=== PATIENT | male | born 1995 | race Caucasian/White ===

== ENCOUNTER 2019-07-28 13:17 | Inpatient (IN) | payer MEDICAID ==
[~2019-07-28] VITALS: Ht 167.6 cm; Wt 67.6 kg
--- NOTE | 2019-07-28 13:17 | NUR ---
Patient transferred to bed 6 via wheelchair by triage nurse. RN evaluating patient at bedside.
--- NOTE | 2019-07-28 13:30 | NUR ---
Dr. Maher is evaluating the patient at bedside.
[2019-07-28] MEDS ORDERED: ADENOSINE 6 MG/2 ML VIAL IVP ONE (13:31)
[2019-07-28 13:33] VITALS: BP 129/81
--- NOTE | 2019-07-28 13:34 | NUR ---
EKG completed by EMT at bedside.
[2019-07-28] MEDS ORDERED: NACL 0.9% 1,000 ML IV ONE ×2 (13:40→14:10)
[2019-07-28 14:07] LABS: BASOPHILS % (AUTO) 0.4 % (0.0-2.0); EOSINOPHILS # (AUTO) 0.3 K/uL (0-0.4); HEMATOCRIT 41.4 % (36-52); HEMOGLOBIN 13.9 g/dL (12.0-18.0); LYMPHOCYTES # (AUTO) 3.9 K/uL (2.0-11.5); MEAN CORPUSCULAR HEMOGLOBIN 29 pg (27-31); MEAN CORPUSCULAR HGB CONC 34 g/dL (33-37); MEAN CORPUSCULAR VOLUME 86.4 fL (80-94); MONOCYTES # (AUTO) 0.5 K/uL (0.8-1.0); MONOCYTES % (AUTO) 5.3 % (1.7-9.3); NEUTROPHILS # (AUTO) 4.2 K/uL (1.8-7.7); NEUTROPHILS % (AUTO) 47.3 % (42.2-75.2); PLATELET COUNT (AUTO) 226 K/uL (140-450); RED BLOOD CELL COUNT(AUTO) 4.79 MIL/uL (4.20-6.10); RED CELL DISTRIBUTION WIDTH 13.1 % (11.6-13.7); WHITE BLOOD COUNT (AUTO) 8.8 K/uL (4.8-10.8)
--- NOTE | 2019-07-28 14:17 | NUR ---
Dr. Maher is re-evaluating the patient at bedside.
--- NOTE | 2019-07-28 14:27 | NUR ---
asked pt to urinate again, provided urinal
[2019-07-28 14:30] LABS: ALBUMIN 3.7 g/dL (3.4-5.0); ANION GAP 16.1 (8-16); CARBON DIOXIDE 23.7 mmol/L (21-32); CREATININE 1.2 mg/dL (0.6-1.3); TOTAL BILIRUBIN 0.5 mg/dL (0.0-1.0)
[2019-07-28 14:32] LABS: POTASSIUM 2.8 mmol/L (3.5-5.1)
[2019-07-28] MEDS ORDERED: POTASSIUM CHLORIDE 10 MEQ TABER PO ONE (14:40)
[2019-07-28] MEDS ORDERED: KCL 20 MEQ/WATER INJ PREMIX 100 ML IV ONE (14:40)
[2019-07-28] MEDS ORDERED: MAG SULF 2000 MG/WATER PREMIX 50 ML IV ONE (14:40)
[2019-07-28] MEDS ORDERED: DEXT 5% /NACL 0.9% 1,000 ML IV SCH (14:47)
[2019-07-28] MEDS ORDERED: HYDROcodone/APAP 7.5/325 MG 1 TAB PO PRN (14:50)
[2019-07-28] MEDS ORDERED: ACETAMINOPHEN 325 MG TAB PO PRN (14:50)
[2019-07-28] MEDS ORDERED: DOCUSATE SODIUM 100 MG GELCAP PO PRN (14:50)
[2019-07-28] MEDS ORDERED: ONDANSETRON 4 MG/2 ML VIAL IM/IVP PRN (14:50)
[2019-07-28] MEDS ORDERED: ONDANSETRON 4 MG/2 ML VIAL IVP ONE (14:55)
--- NOTE | 2019-07-28 15:30 | NUR ---
PT UNABLE TO URINATE, DR WONG AWARE
[2019-07-28 15:43] LABS: CHOL/HDL RATIO 1.8 (1-4.5); FREE T4 (FREE THYROXINE) 1.18 ng/dL (0.76-1.46); MAGNESIUM 1.7 mg/dL (1.8-2.4); PHOSPHORUS 1.9 mg/dL (2.5-4.9)
[2019-07-28] MEDS ORDERED: NITROGLYCERIN 0.4 MG TAB SL PRN (15:45)
--- NOTE | 2019-07-28 15:59 | NUR ---
PT RESTING IN BED, NO NEW NEEDS AT THIS TIME.
[2019-07-28 16:20] VITALS: BP 112/59
--- NOTE | 2019-07-28 16:20 | NUR ---
PATIENT ARRIVED FROM ED VIA GURNEY. REPORT GIVEN BY [facility]. PLANS OF CARE DISCUSSED. PATIENT ALERT AND ORIENTED X4. PORTUGUESE SPEAKING. TRUSS DESIGNER PROVIDED. IV INTACT AND PATENT TO LEFT FOREARM. PER ER REPORT K RIDER STILL NEED TO BE STARTED AFTER THE MAGNESIUM IV FINISHED. INITIAL ASSESSMENT TO BE DONE. VS STABLE. PATIENT ORIENTED TO ROOM AND STAFF. CALL LIGHT WITHIN REACH.
--- NOTE | 2019-07-28 16:25 | NUR ---
Patient will be admitted to care of DR. HYDE. Admited to TELEMETRY. Will go to room 106B. Belongings list completed. Report to [facility].
[2019-07-28] MEDS: ECOTRIN 81 MG TABEC PO SCH (16:55)
[2019-07-28] MEDS ORDERED: ATORVASTATIN 20 MG TAB PO SCH (17:00)
[2019-07-28] MEDS: MAGNESIUM OXIDE 400 MG TAB PO SCH (18:43)
[2019-07-28] MEDS: SODIUM PHOS / POTASSIUM PHOS 1 PKT PDR PO SCH (18:43)
--- NOTE | 2019-07-28 19:00 | NUR ---
DR. JOSHI AT BEDSIDE.
[2019-07-28 19:04] LABS: APPEARANCE,URINE CLEAR (CLEAR); BILIRUBIN,URINE NEGATIVE (NEGATIVE); BLOOD, URINE NEGATIVE (NEGATIVE); COLOR,URINE YELLOW (YELLOW); LEUKOCYTE ESTERASE ,URINE NEGATIVE (NEGATIVE); NITRITE, URINE NEGATIVE (NEGATIVE); UGLUCOSE TRACE (NEGATIVE)
[2019-07-28 19:15] LABS: BARBITURATE, URINE NEGATIVE ng/ml (NEG <=200); BENZODIAZEPINE, URINE NEGATIVE ng/mL (NEG <=200); CANNABINOID, URINE POSITIVE ng/mL (NEG <=50); COCAINE, URINE NEGATIVE ng/mL (NEG <=300); OPIATE, URINE NEGATIVE ng/mL (NEG <=2000); PHENCYCLIDINE SCREEN,URINE NEGATIVE ng/mL (NEG <=25)
--- NOTE | 2019-07-28 19:17 | NUR ---
WILL ENDORSE TO NIGHT NURSE FOR CONTINUITY OF CARE. PATIENT IN STABLE CONDITION.
--- NOTE | 2019-07-28 19:18 | NUR ---
RECD. RESTING IN BED, AWAKE, A/OX4. RESPIRATION EVEN AND UNLABORED. 20 MEQ K-RIDER INFUSING , LEFT FOREARM G18. ABLE TO AMBULATE BY HIMSELF. NO NAUSEA AND VOMITING NOTED. PLAN OF CARE FOR THE SHIFT DISCUSSED. VERBALIZED UNDERSTANDING. DENIES PAIN 0/10.
--- NOTE | 2019-07-28 19:18 | NUR ---
Patient's Plan of Care was discussed and reviewed with FILM RENTAL CLERK: IRENE HANKINS. WILL CONTINUE TO MONITOR.
[2019-07-28 20:00] VITALS: BP 103/50
[2019-07-28] MEDS: METOPROLOL 25 MG TAB PO SCH ×2 (21:00→21:40)
[2019-07-28 21:36] LABS: ANION GAP 12.6 (8-16); CARBON DIOXIDE 25.6 mmol/L (21-32); CREATININE 0.9 mg/dL (0.6-1.3); POTASSIUM 4.2 mmol/L (3.5-5.1)
--- NOTE | 2019-07-28 21:45 | NUR ---
METOPROLOL NOT ADMINISTERED, BP - 103/50, HR - 65. INFORMED DR. GARY, MAY HOLD FOR NOW METOPROLOL.
[2019-07-29] VITALS: BP 101/53
--- NOTE | 2019-07-29 | NUR ---
SLEEPING COMFORTABLY IN BED.
--- NOTE | 2019-07-29 02:30 | NUR ---
HR DIPPED DOWN TO 45, THEN WENT UP TO 50's. PATIENT ASYMPTOMATIC, NO DISTRESS NOTED.
[2019-07-29 04:00] VITALS: BP 104/47
--- NOTE | 2019-07-29 04:00 | NUR ---
RESTING COMFORTABLY IN BED. SINUS BRADYCARDIA ON TELE MONITORING - 47. WILL INFORM MD. PATIENT IS ASYMPTOMATIC, VS STABLE.
--- NOTE | 2019-07-29 06:00 | NUR ---
INFORMED DR. COPELAND, PATIENT HAS BEEN BRADYCARDIA DURING THE NIGHT.
[2019-07-29 06:16] LABS: BASOPHILS % (AUTO) 0.4 % (0.0-2.0); EOSINOPHILS # (AUTO) 0.1 K/uL (0-0.4); EOSINOPHILS % (AUTO) 1.5 % (0.0-4.0); HEMATOCRIT 39.6 % (36-52); HEMOGLOBIN 13.4 g/dL (12.0-18.0); LYMPHOCYTES # (AUTO) 2.6 K/uL (2.0-11.5); LYMPHOCYTES % (AUTO) 31.7 % (20.5-51.1); MEAN CORPUSCULAR HEMOGLOBIN 30 pg (27-31); MEAN CORPUSCULAR HGB CONC 34 g/dL (33-37); MEAN CORPUSCULAR VOLUME 87.1 fL (80-94); MONOCYTES # (AUTO) 0.4 K/uL (0.8-1.0); MONOCYTES % (AUTO) 5.2 % (1.7-9.3); NEUTROPHILS % (AUTO) 61.2 % (42.2-75.2); PLATELET COUNT (AUTO) 164 K/uL (140-450); RED BLOOD CELL COUNT(AUTO) 4.55 MIL/uL (4.20-6.10); RED CELL DISTRIBUTION WIDTH 13.1 % (11.6-13.7); WHITE BLOOD COUNT (AUTO) 8.2 K/uL (4.8-10.8)
--- NOTE | 2019-07-29 07:00 | NUR ---
STILL SLEEPING COMFORTABLY IN BED, CONDITION REMAIN STABLE. WILL ENDORSE TO AM SHIFT NURSE FOR CONTINUITY OF CARE.
[2019-07-29 07:27] LABS: MAGNESIUM 2.3 mg/dL (1.8-2.4); PHOSPHORUS 3.2 mg/dL (2.5-4.9)
[2019-07-29 07:39] LABS: ANION GAP 12.3 (8-16); CARBON DIOXIDE 26.5 mmol/L (21-32); CREATININE 0.9 mg/dL (0.6-1.3); POTASSIUM 3.8 mmol/L (3.5-5.1)
[2019-07-29] MEDS ORDERED: PANTOPRAZOLE 40 MG TABEC PO SCH (09:00)
[2019-07-29] MEDS ORDERED: LISINOPRIL 5 MG TAB PO SCH (09:00)
--- NOTE | 2019-07-29 09:05 | NUR ---
PATIENT HAS BEEN SCREENED AND CATEGORIZED LOW NUTRITION RISK. PATIENT WILL BE SEEN WITHIN 7 DAYS OF ADMISSION. 08/04/[address]
[2019-07-29] MEDS: SODIUM PHOS / POTASSIUM PHOS 1 PKT PDR PO SCH ×2 (09:22→13:00)
[2019-07-29] MEDS: ECOTRIN 81 MG TABEC PO SCH (09:23)
[2019-07-29] MEDS: MAGNESIUM OXIDE 400 MG TAB PO SCH (09:23)
[2019-07-29 10:57] VITALS: BP 108/53
[2019-07-29 12:12] LABS: T4 (THYROXINE) 7.1 ug/dL (4.5-12.0)
--- NOTE | 2019-07-29 14:00 | NUR ---
PATIENT IN BED RESTING COMFORTABLY, AWAKE WATCHING TV. NO C/O PAIN OR DISCOMFORT, RESPIRATIONS NONLABORED. SKIN IS CLEAN, WARM AND DRY TO TOUCH. IV FLUIDS RUNNING ORDERED/NO S/SX OF INFILTRATION. BED LOCKED IN LOWEST POSITION, CALL LIGHT IN REACH.
[2019-07-29 14:44] VITALS: BP 108/62
--- NOTE | 2019-07-29 15:30 | NUR ---
Patient given and explained discharge instruction and fo;;ow up care. Patient verbalizes understanding. Vital signs WNL, no c/o pain or discomfort, respirations nonlabored. Discontinue IV site. Patient has all personal belonging upon discharge. Nurse accompanied patient to vehicle to be taken home by family. Patient is now discharge from care.
[2019-07-29 16:16] VITALS: BP 108/62
== END 2019-07-29 16:30 | disposition home or self-care (01) | DRG 812 ==
LOC: MED 13:17 → MTU 14:51
PROVIDERS: ADMIT General Practice; ATTEND General Practice
DX: T40.7X1A Poisoning by cannabis (derivatives), accidental (unintentional), initial encounter (principal); G92 Toxic encephalopathy; E83.39 Other disorders of phosphorus metabolism; E83.42 Hypomagnesemia; R00.0 Tachycardia, unspecified; E78.5 Hyperlipidemia, unspecified; E87.6 Hypokalemia; E83.51 Hypocalcemia; Y92.89 Other specified places as the place of occurrence of the external cause
CPT/HCPCS: 36415; 71045; 80048; 80053; 80305; 81003; 82150; 82553; 83036; 83690; 83735; 83880; 84100; 84436; 84439; 84443; 84479; 84484; 85025; 85610; 85730; 87081; 93005; 96361; 96365; 99291; J0153; J1644; J2405; J3475; J3480; J7042; Q0092